=== PATIENT | female | born 1995 | race Two or more races ===

== ENCOUNTER 2020-03-12 10:34 | Outpatient (CLI) | payer OTHER | END 2020-03-12 10:47 | disposition home or self-care (01) | LOC: MAMO-SONO 10:34 | DX: N60.11 Diffuse cystic mastopathy of right breast (principal); N60.12 Diffuse cystic mastopathy of left breast ==

== ENCOUNTER → 2021-10-20 | Outpatient (CLI) | payer OTHER | END | disposition home or self-care (01) | LOC: PPH VACUNA 08:00 | PROVIDERS: ATTEND Emergency Medicine Pediatric Emergency Medicine | DX: Z23 Encounter for immunization (principal) ==

== ENCOUNTER 2023-06-13 23:03 | Emergency (ER) | payer OTHER ==
[~2023-06-13] VITALS: Ht 160 cm; Wt 54.4 kg
== END 2023-06-14 05:53 | disposition home or self-care (01) ==
LOC: ER 23:03
DX: M25.552 Pain in left hip (principal)